=== PATIENT | male | born 1980 | race Caucasian/White ===

== ENCOUNTER 2022-06-13 09:00 | Inpatient (IN) | payer MEDICAID, OTHER ==
[~2022-06-13] VITALS: Ht 180.3 cm; Wt 81.6 kg
[2022-06-13 09:20] VITALS: BP_SYST 118
[2022-06-13] MEDS ORDERED: NACL 0.9% 1,000 ML IV ONE ×2 (09:45→14:00)
[2022-06-13] MEDS ORDERED: ONDANSETRON 4 MG ODT TAB PO ONE (09:45)
[2022-06-13] MEDS ORDERED: PANTOPRAZOLE SODIUM 40 MG/VIAL (PROTONIX) IVP ONE (09:45)
[2022-06-13 10:14] LABS: BASOPHILS % (AUTO) 0.1 % (0.0-2.0); EOSINOPHILS % (AUTO) 0.1 % (0.0-4.0); HEMATOCRIT 44.8 % (36-54); LYMPHOCYTES # (AUTO) 0.8 K/uL (1.0-5.5); LYMPHOCYTES % (AUTO) 6.7 % (20.5-51.5); MEAN CORPUSCULAR HEMOGLOBIN 30 pg (27-31); MEAN CORPUSCULAR HGB CONC 33 % (32-36); MEAN CORPUSCULAR VOLUME 90 fL (79.0-98.0); MONOCYTES # (AUTO) 0.8 K/uL (0.0-1.0); MONOCYTES % (AUTO) 6.9 % (1.7-9.3); NEUTROPHILS % (AUTO) 86.2 % (40.0-70.0); PLATELET COUNT (AUTO) 237 K/uL (130-430); RED BLOOD CELL COUNT(AUTO) 4.98 MIL/uL (4.2-6.2); RED CELL DISTRIBUTION WIDTH 13.1 % (9.0-15.0); WHITE BLOOD COUNT (AUTO) 11.5 K/uL (4.8-10.8)
[2022-06-13 10:19] LABS: CALCIUM 9.4 mg/dL (8.4-11.0); CREATININE 1.16 mg/dL (0.55-1.30)
[2022-06-13 10:30] LABS: ALBUMIN 4.1 g/dL (3.4-4.8); TOTAL BILIRUBIN 0.4 mg/dL (0.0-1.0)
[2022-06-13] MEDS ORDERED: ONDANSETRON HCL 4 MG/2 ML VIAL ONE (10:51)
[2022-06-13] MEDS ORDERED: ONDANSETRON HCL 4 MG/2 ML VIAL IVP ONE (11:00)
[2022-06-13 12:11] LABS: BILIRUBIN,URINE NEGATIVE (NEGATIVE); BLOOD, URINE NEGATIVE (NEGATIVE); CLARITY/URINE CLEAR (CLEAR); COLOR,URINE YELLOW (YELLOW); GLUCOSE,URINE NEGATIVE (NEGATIVE); KETONES,URINE TRACE (NEGATIVE); LEUKOCYTE ESTERASE ,URINE NEGATIVE (NEGATIVE); NITRITE, URINE NEGATIVE (NEGATIVE); PROTEIN URINE NEGATIVE (NEGATIVE); UROBILINOGEN,URINE 0.2 (0.2-1.0)
[2022-06-13] MEDS ORDERED: MORPHINE 4 MG INJ. 4 MG/ML VIAL IVP ONE (12:30)
[2022-06-13] MEDS ORDERED: LORazepam 2 MG/ML VIAL IVP ONE (13:00)
[2022-06-13] MEDS ORDERED: metroNIDAZOLE 500 mg/NS 100 ML IV ONE (13:15)
[2022-06-13] MEDS ORDERED: cefTRIAXone 1 GM in D5W 50 ML IV ONE (13:15)
[2022-06-13] MEDS ORDERED: cefTRIAXone 1 GM VIAL ONE (14:18)
[2022-06-13 16:24] LABS: PROTHROMBIN TIME 10.1 SECS (9.5-12.5)
[2022-06-13] MEDS ORDERED: NALOXONE HCL 0.4 MG/ML AMP (NARCAN) IVP PRN (16:30)
[2022-06-13] MEDS: MORPHINE 4 MG INJ. 4 MG/ML VIAL IVP PRN (18:06)
[2022-06-13 18:10] VITALS: BP_SYST 116
[2022-06-13 18:49] VITALS: BP_SYST 111
[2022-06-13 19:00] VITALS: BP_SYST 129
[2022-06-13 20:00] VITALS: BP_SYST 129
[2022-06-13] MEDS: PANTOPRAZOLE SODIUM 40 MG/VIAL (PROTONIX) IVP SCH (20:40)
[2022-06-13] MEDS: ONDANSETRON HCL 4 MG/2 ML VIAL IVP PRN (20:47)
[2022-06-14] VITALS: BP_SYST 125
[2022-06-14] MEDS: MORPHINE 4 MG INJ. 4 MG/ML VIAL IVP PRN (03:45)
[2022-06-14] MEDS: ONDANSETRON HCL 4 MG/2 ML VIAL IVP PRN (03:48)
[2022-06-14 06:12] LABS: BASOPHILS % (AUTO) 0.2 % (0.0-2.0); EOSINOPHILS % (AUTO) 0.4 % (0.0-4.0); HEMATOCRIT 40.4 % (36-54); HEMOGLOBIN 13.9 g/dL (14.0-18.0); LYMPHOCYTES # (AUTO) 1.5 K/uL (1.0-5.5); LYMPHOCYTES % (AUTO) 16.5 % (20.5-51.5); MEAN CORPUSCULAR HEMOGLOBIN 31 pg (27-31); MEAN CORPUSCULAR HGB CONC 35 % (32-36); MEAN CORPUSCULAR VOLUME 90 fL (79.0-98.0); MONOCYTES # (AUTO) 0.7 K/uL (0.0-1.0); MONOCYTES % (AUTO) 7.3 % (1.7-9.3); NEUTROPHILS # (AUTO) 6.9 K/uL (1.8-7.7); NEUTROPHILS % (AUTO) 75.6 % (40.0-70.0); PLATELET COUNT (AUTO) 218 K/uL (130-430); RED CELL DISTRIBUTION WIDTH 12.9 % (9.0-15.0); WHITE BLOOD COUNT (AUTO) 9.2 K/uL (4.8-10.8)
[2022-06-14 06:20] LABS: PROTHROMBIN TIME 10.1 SECS (9.5-12.5)
[2022-06-14 06:35] LABS: ALBUMIN 3.5 g/dL (3.4-4.8); CALCIUM 8.3 mg/dL (8.4-11.0); CREATININE 0.97 mg/dL (0.55-1.30); TOTAL BILIRUBIN 0.5 mg/dL (0.0-1.0)
[2022-06-14] MEDS ORDERED: MIDAZOLAM HCL 5 MG/5 ML VIAL ONE (07:35)
[2022-06-14] MEDS ORDERED: MEPERIDINE HCL/PF 25 MG/ML DISP.SYRIN ONE (07:36)
[2022-06-14 09:10] VITALS: BP_SYST 102
[2022-06-14] MEDS: PANTOPRAZOLE SODIUM 40 MG/VIAL (PROTONIX) IVP SCH ×2 (09:39→20:49)
[2022-06-14] MEDS: MORPHINE 2 MG/ML INJ. SYRINGE IVP PRN ×3 (11:43→22:54)
[2022-06-14 12:00] VITALS: BP_SYST 110
[2022-06-14] MEDS: ACETAMINOPHEN 500 MG TABLET PO PRN (14:34)
[2022-06-14 16:00] VITALS: BP_SYST 114
[2022-06-14] MEDS ORDERED: BISACODYL 5 MG TABLET.DR (DULCOLAX) PO ONE (17:00)
[2022-06-14] MEDS ORDERED: GOLYTELY / COLYTE SOLUTION 4 LITERS PO ONE (18:00)
[2022-06-14 20:00] VITALS: BP_SYST 128
[2022-06-14] MEDS: HYDROcodone/ACETAMIN 5-325 MG TAB (NORCO/ VICODIN) PO PRN (20:47)
[2022-06-15 02:45] VITALS: BP_SYST 113
[2022-06-15] MEDS: MORPHINE 2 MG/ML INJ. SYRINGE IVP PRN (05:47)
[2022-06-15] MEDS: MORPHINE 4 MG INJ. 4 MG/ML VIAL IVP PRN ×2 (06:19→20:25)
[2022-06-15 06:58] LABS: BASOPHILS % (AUTO) 0.2 % (0.0-2.0); EOSINOPHILS # (AUTO) 0.1 K/uL (0.0-0.4); EOSINOPHILS % (AUTO) 0.9 % (0.0-4.0); HEMATOCRIT 43.6 % (36-54); HEMOGLOBIN 14.7 g/dL (14.0-18.0); LYMPHOCYTES # (AUTO) 2.1 K/uL (1.0-5.5); LYMPHOCYTES % (AUTO) 18.2 % (20.5-51.5); MEAN CORPUSCULAR HEMOGLOBIN 30 pg (27-31); MEAN CORPUSCULAR HGB CONC 34 % (32-36); MEAN CORPUSCULAR VOLUME 91 fL (79.0-98.0); MONOCYTES # (AUTO) 0.7 K/uL (0.0-1.0); MONOCYTES % (AUTO) 6.4 % (1.7-9.3); NEUTROPHILS # (AUTO) 8.7 K/uL (1.8-7.7); NEUTROPHILS % (AUTO) 74.3 % (40.0-70.0); PLATELET COUNT (AUTO) 249 K/uL (130-430); RED BLOOD CELL COUNT(AUTO) 4.81 MIL/uL (4.2-6.2); RED CELL DISTRIBUTION WIDTH 13.2 % (9.0-15.0); WHITE BLOOD COUNT (AUTO) 11.7 K/uL (4.8-10.8)
[2022-06-15 07:00] LABS: CREATININE 0.94 mg/dL (0.55-1.30)
[2022-06-15] MEDS ORDERED: MEPERIDINE HCL/PF 25 MG/ML DISP.SYRIN ONE (07:09)
[2022-06-15] MEDS ORDERED: MIDAZOLAM HCL 5 MG/5 ML VIAL ONE (07:09)
[2022-06-15 08:00] VITALS: BP_SYST 112
[2022-06-15] MEDS: PANTOPRAZOLE SODIUM 40 MG/VIAL (PROTONIX) IVP SCH ×2 (09:00→20:25)
[2022-06-15 09:55] VITALS: BP_SYST 109
[2022-06-15 12:00] VITALS: BP_SYST 116
[2022-06-15] MEDS: metroNIDAZOLE 500 MG TABLET PO SCH ×2 (13:47→21:44)
[2022-06-15 16:00] VITALS: BP_SYST 120
[2022-06-15] MEDS: HYDROcodone/ACETAMIN 5-325 MG TAB (NORCO/ VICODIN) PO PRN (16:26)
[2022-06-15 20:00] VITALS: BP_SYST 111
[2022-06-15] MEDS: LACTOBACILLUS RHAMNOSUS GG 1 CAP CAPSULE PO SCH (20:25)
[2022-06-15] MEDS ORDERED: metroNIDAZOLE 500 mg/NS 100 ML IV SCH (21:00)
[2022-06-15] MEDS: CIPROFLOXACIN HCL 500 MG TABLET PO SCH (21:44)
[2022-06-16] VITALS: BP_SYST 122
[2022-06-16] MEDS: MORPHINE 4 MG INJ. 4 MG/ML VIAL IVP PRN ×2 (00:21→04:46)
[2022-06-16] MEDS: ONDANSETRON HCL 4 MG/2 ML VIAL IVP PRN (01:28)
[2022-06-16] MEDS: metroNIDAZOLE 500 MG TABLET PO SCH ×3 (05:48→21:57)
[2022-06-16 06:32] LABS: CALCIUM 8.8 mg/dL (8.4-11.0)
[2022-06-16 07:04] LABS: BASOPHILS % (AUTO) 0.4 % (0.0-2.0); EOSINOPHILS # (AUTO) 0.1 K/uL (0.0-0.4); EOSINOPHILS % (AUTO) 1.4 % (0.0-4.0); HEMATOCRIT 38.8 % (36-54); HEMOGLOBIN 13.2 g/dL (14.0-18.0); LYMPHOCYTES # (AUTO) 2.2 K/uL (1.0-5.5); LYMPHOCYTES % (AUTO) 31.7 % (20.5-51.5); MEAN CORPUSCULAR HEMOGLOBIN 31 pg (27-31); MEAN CORPUSCULAR HGB CONC 34 % (32-36); MEAN CORPUSCULAR VOLUME 90 fL (79.0-98.0); MONOCYTES # (AUTO) 0.5 K/uL (0.0-1.0); MONOCYTES % (AUTO) 8.1 % (1.7-9.3); NEUTROPHILS % (AUTO) 58.4 % (40.0-70.0); PLATELET COUNT (AUTO) 217 K/uL (130-430); RED BLOOD CELL COUNT(AUTO) 4.32 MIL/uL (4.2-6.2); RED CELL DISTRIBUTION WIDTH 12.7 % (9.0-15.0)
[2022-06-16 07:22] LABS: WHITE BLOOD COUNT (AUTO) 6.8 K/uL (4.8-10.8)
[2022-06-16 08:30] VITALS: BP_SYST 106
[2022-06-16] MEDS ORDERED: ESCITALOPRAM OXALATE 10 MG TABLET PO SCH (09:00)
[2022-06-16] MEDS: LACTOBACILLUS RHAMNOSUS GG 1 CAP CAPSULE PO SCH ×2 (09:35→21:56)
[2022-06-16] MEDS: CITALOPRAM HYDROBROMIDE 20 MG TABLET PO SCH (09:36)
[2022-06-16] MEDS: PANTOPRAZOLE SODIUM 40 MG/VIAL (PROTONIX) IVP SCH ×2 (09:36→21:52)
[2022-06-16] MEDS: CIPROFLOXACIN HCL 500 MG TABLET PO SCH ×2 (09:49→21:57)
[2022-06-16 12:00] VITALS: BP_SYST 116
[2022-06-16 16:19] VITALS: BP_SYST 111
[2022-06-16 20:00] VITALS: BP_SYST 121
[2022-06-16] MEDS: HYDROcodone/ACETAMIN 5-325 MG TAB (NORCO/ VICODIN) PO PRN (21:57)
[2022-06-17] MEDS: metroNIDAZOLE 500 MG TABLET PO SCH ×3 (05:42→21:28)
[2022-06-17] MEDS: PANTOPRAZOLE SODIUM 40 MG/VIAL (PROTONIX) IVP SCH ×2 (09:27→21:27)
[2022-06-17] MEDS: CITALOPRAM HYDROBROMIDE 20 MG TABLET PO SCH (09:28)
[2022-06-17] MEDS: LACTOBACILLUS RHAMNOSUS GG 1 CAP CAPSULE PO SCH ×2 (09:28→21:28)
[2022-06-17] MEDS: CIPROFLOXACIN HCL 500 MG TABLET PO SCH ×2 (09:32→21:28)
[2022-06-17 13:58] VITALS: BP_SYST 118
[2022-06-17 17:54] VITALS: BP_SYST 117
[2022-06-17] MEDS: HYDROcodone/ACETAMIN 5-325 MG TAB (NORCO/ VICODIN) PO PRN (21:28)
[2022-06-18 00:40] VITALS: BP_SYST 110
[2022-06-18] MEDS: ACETAMINOPHEN 500 MG TABLET PO PRN (00:44)
[2022-06-18] MEDS: metroNIDAZOLE 500 MG TABLET PO SCH ×2 (06:37→21:36)
[2022-06-18 07:00] VITALS: BP_SYST 132
[2022-06-18] MEDS: PANTOPRAZOLE SODIUM 40 MG/VIAL (PROTONIX) IVP SCH ×2 (10:52→21:38)
[2022-06-18] MEDS: CIPROFLOXACIN HCL 500 MG TABLET PO SCH ×2 (10:53→21:36)
[2022-06-18] MEDS: LACTOBACILLUS RHAMNOSUS GG 1 CAP CAPSULE PO SCH ×2 (10:53→21:36)
[2022-06-18] MEDS: CITALOPRAM HYDROBROMIDE 20 MG TABLET PO SCH (10:53)
[2022-06-18] MEDS: ONDANSETRON HCL 4 MG/2 ML VIAL IVP PRN (11:37)
[2022-06-18 11:53] VITALS: BP_SYST 112
[2022-06-18 17:55] VITALS: BP_SYST 121
[2022-06-18] MEDS: HYDROcodone/ACETAMIN 5-325 MG TAB (NORCO/ VICODIN) PO PRN ×2 (21:38→22:14)
[2022-06-18 21:39] VITALS: BP_SYST 150
[2022-06-19] MEDS: HYDROcodone/ACETAMIN 5-325 MG TAB (NORCO/ VICODIN) PO PRN ×3 (03:53→21:58)
[2022-06-19] MEDS: metroNIDAZOLE 500 MG TABLET PO SCH ×3 (06:47→21:57)
[2022-06-19 08:34] VITALS: BP_SYST 117
[2022-06-19] MEDS: PANTOPRAZOLE SODIUM 40 MG/VIAL (PROTONIX) IVP SCH ×2 (09:46→21:59)
[2022-06-19] MEDS: CIPROFLOXACIN HCL 500 MG TABLET PO SCH ×2 (09:47→21:57)
[2022-06-19] MEDS: CITALOPRAM HYDROBROMIDE 20 MG TABLET PO SCH (09:52)
[2022-06-19] MEDS: LACTOBACILLUS RHAMNOSUS GG 1 CAP CAPSULE PO SCH ×2 (09:52→21:57)
[2022-06-19 12:00] VITALS: BP_SYST 120
[2022-06-19] MEDS: DIPHENHYDRAMINE HCL 50 MG CAPSULE PO PRN ×2 (14:54→21:57)
[2022-06-19 16:00] VITALS: BP_SYST 107
[2022-06-19 20:37] VITALS: BP_SYST 122
[2022-06-19 23:30] VITALS: BP_SYST 108
[2022-06-20] MEDS: metroNIDAZOLE 500 MG TABLET PO SCH ×3 (05:56→21:42)
[2022-06-20] MEDS: HYDROcodone/ACETAMIN 5-325 MG TAB (NORCO/ VICODIN) PO PRN ×2 (05:56→14:28)
[2022-06-20 09:12] VITALS: BP_SYST 114
[2022-06-20] MEDS: CIPROFLOXACIN HCL 500 MG TABLET PO SCH ×2 (09:27→21:42)
[2022-06-20] MEDS: LACTOBACILLUS RHAMNOSUS GG 1 CAP CAPSULE PO SCH ×2 (09:27→21:42)
[2022-06-20] MEDS: CITALOPRAM HYDROBROMIDE 20 MG TABLET PO SCH (09:27)
[2022-06-20] MEDS: ACETAMINOPHEN 500 MG TABLET PO PRN (09:28)
[2022-06-20] MEDS: PANTOPRAZOLE SODIUM 40 MG/VIAL (PROTONIX) IVP SCH ×2 (09:31→21:43)
[2022-06-20 16:00] VITALS: BP_SYST 123
[2022-06-20 20:00] VITALS: BP_SYST 116
[2022-06-21 00:49] VITALS: BP_SYST 116
[2022-06-21] MEDS: metroNIDAZOLE 500 MG TABLET PO SCH (06:11)
[2022-06-21 08:00] VITALS: BP_SYST 115
[2022-06-21] MEDS: LACTOBACILLUS RHAMNOSUS GG 1 CAP CAPSULE PO SCH (09:43)
[2022-06-21] MEDS: CIPROFLOXACIN HCL 500 MG TABLET PO SCH (09:43)
[2022-06-21] MEDS: PANTOPRAZOLE SODIUM 40 MG/VIAL (PROTONIX) IVP SCH (09:43)
[2022-06-21] MEDS: CITALOPRAM HYDROBROMIDE 20 MG TABLET PO SCH (09:43)
[2022-06-21 13:55] LABS: BASOPHILS # (AUTO) 0.1 K/uL (0.0-0.2); BASOPHILS % (AUTO) 0.8 % (0.0-2.0); EOSINOPHILS # (AUTO) 0.1 K/uL (0.0-0.4); EOSINOPHILS % (AUTO) 0.8 % (0.0-4.0); HEMATOCRIT 43.7 % (36-54); HEMOGLOBIN 14.8 g/dL (14.0-18.0); LYMPHOCYTES # (AUTO) 1.7 K/uL (1.0-5.5); LYMPHOCYTES % (AUTO) 22.9 % (20.5-51.5); MEAN CORPUSCULAR HEMOGLOBIN 30 pg (27-31); MEAN CORPUSCULAR HGB CONC 34 % (32-36); MEAN CORPUSCULAR VOLUME 89 fL (79.0-98.0); MONOCYTES # (AUTO) 0.5 K/uL (0.0-1.0); NEUTROPHILS % (AUTO) 68.5 % (40.0-70.0); PLATELET COUNT (AUTO) 306 K/uL (130-430); RED BLOOD CELL COUNT(AUTO) 4.93 MIL/uL (4.2-6.2); RED CELL DISTRIBUTION WIDTH 12.7 % (9.0-15.0); WHITE BLOOD COUNT (AUTO) 7.3 K/uL (4.8-10.8)
[2022-06-21 14:17] LABS: CREATININE 1.03 mg/dL (0.55-1.30)
[2022-06-21 15:56] VITALS: BP_SYST 110
[2022-06-21 16:56] VITALS: BP_SYST 110
== END 2022-06-21 18:18 | disposition home health service (06) | DRG 249 ==
LOC: SED 09:00 → STU 14:25 → SMU 06-15 13:05
PROVIDERS: ADMIT Internal Medicine; ATTEND Internal Medicine
PROC: 0DB78ZX Excision of Stomach, Pylorus, Via Natural or Artificial Opening Endoscopic, Diagnostic (ICD-10-PCS; principal; 2022-06-14 08:00)
PROC: 0DBG8ZX Excision of Left Large Intestine, Via Natural or Artificial Opening Endoscopic, Diagnostic (ICD-10-PCS; 2022-06-15)
PROC: 0DBF8ZX Excision of Right Large Intestine, Via Natural or Artificial Opening Endoscopic, Diagnostic (ICD-10-PCS; 2022-06-15)
DX: A09 Infectious gastroenteritis and colitis, unspecified (principal); K55.039 Acute (reversible) ischemia of large intestine, extent unspecified; D62 Acute posthemorrhagic anemia; K26.9 Duodenal ulcer, unspecified as acute or chronic, without hemorrhage or perforation; K64.4 Residual hemorrhoidal skin tags; Z20.822 Contact with and (suspected) exposure to COVID-19; K29.80 Duodenitis without bleeding; K59.89 Other specified functional intestinal disorders; E27.9 Disorder of adrenal gland, unspecified; Z86.711 Personal history of pulmonary embolism; Z88.6 Allergy status to analgesic agent; Z79.899 Other long term (current) drug therapy; Z87.820 Personal history of traumatic brain injury
CPT/HCPCS: 36415; 43239; 45380; 70450-TC; 70551; 72131; 73221; 73564; 73590-TC; 76376; 80048; 80053; 81003; 82272; 83690; 85025; 85610-TC; 85730-TC; 86886; 86900; 86901; 87040; 87045-TC; 87046; 87081; 88305; 88312; 88313; 89055; 93005; 97163-GP; 99285; C9113; G0378; J0696; J1956; J2060; J2175; J2250; J2270; J2405; J3490; Q0163; Q9967